=== PATIENT | male | born 1975 | race Caucasian/White ===

== ENCOUNTER 2018-08-04 22:29 | Emergency (ER) | payer BC ==
--- NOTE | 2018-08-04 23:59 | C.PDOC ---
History Of Present Illness 43 yo M BIBEMS/PD after falling while intoxicated and hitting his head. Witnesses deny LOC. Pt states he drank a lot but is able to correctly state the location, time, and his date of . Pt denies ALLEN, neck pain, or confusion. NO other physical complaints. - HPI Time Seen by Provider: 08/04/18 23:03 Chief Complaint (Nursing): Trauma History Per: Patient History/Exam Limitations: intoxication (alcohol) Onset/Duration Of Symptoms: Hrs Location Of Injury: Left: Forearm (0.5 mm laceration to left eyebrow, superficial abrasions to head.) Past Medical History Vital Signs: Last Vital Signs Temp 98.5 F 08/04/18 22:35 Pulse 88 08/04/18 22:35 Resp 16 08/04/18 22:35 BP 117/86 08/04/18 22:35 Pulse Ox 97 08/04/18 22:35 JOSE ARMANDO Report Viewed: Yes - Medical History PMH: No Chronic Diseases Surgical History: No Surg Hx Family History: States: Unknown Family Hx - Social History Hx Alcohol Use: Yes Hx Substance Use: No Review Of Systems Constitutional: Negative for: Fever, Chills, Weakness Eyes: Negative for: Pain, Vision Change ENT: Negative for: Ear Pain Cardiovascular: Negative for: Chest Pain, Palpitations Respiratory: Negative for: Cough, Shortness of Breath Genitourinary: Negative for: Dysuria Musculoskeletal: Negative for: Neck Pain Neurological: Negative for: Weakness, Numbness Physical Exam - Physical Exam Appears: Well, Non-toxic, No Acute Distress Skin: Normal Color, Warm, Dry, Other (superficial abrasion to left forehead and left cheek. 0.5cm laceration to left eyebrow, no active bleeding.) Head: Other (see skin) Nose: Normal Oral Mucosa: Moist Lips: Normal Appearing Teeth: Normal Dentition Neck: Normal, Trachea Midline Chest: Symmetrical, No Tenderness Cardiovascular: Rhythm Regular Respiratory: Normal Breath Sounds Back: Normal Inspection, No CVA Tenderness Extremity: Normal ROM, No Tenderness, No Pedal Edema Extremity: Bilateral: Atraumatic Neurological/Psych: Oriented x3, Normal Speech, Normal Cognition, Normal Cranial Nerves, Normal Motor Gait: Unsteady ED Course And Treatment O2 Sat by Pulse Oximetry: 97 Laceration - Laceration Repair left lateral eyebrow Wound Length (In cm): 0.5 Description Of Wound: Linear Wound Cleansed With: Sterile Saline (irrigated) Wound Examination: Irrigated With Saline, No FB With Wound Exploration Wound Closure: Skin Glue (dermabond with good closure) Wound Complexity: Simple (patient tolerate procedure well) Medical Decision Making Medical Decision Makin yo M presents with alcohol intoxication with abrasions. Visibly intoxicated with slightly unsteady gait but alert and oriented. Pt agreed to wound closure with Dermabond but refusing CT at this time. Agrees to staying in the emergency department until steady gait. 00:50- On reevaluation patient is seen ambulating with a steady gait in the ED. Patient's cousin will come to the ED to pick him up. Patient will be given wound care and concussion instructions. Patient was advised to follow up with PMD. Disposition - Disposition Disposition: HOME/ ROUTINE Disposition Time: 00:48 Condition: IMPROVED Additional Instructions: Follow up with primary medical doctor if you develop headache, confusion, nausea, or other symptoms. Instructions: Alcohol Use - When Is Drinking a Problem?, Laceration Repair With Glue (DC), Effects of Alcohol on Your Health, Concussion (ED) Forms: [employer] (German) - Clinical Impression Clinical Impression: Laceration - injury, Alcohol abuse, Head injury due to trauma
[2018-08-05 01:09] VITALS: BP 148/89; PULSE 99; RESP 18; TEMP 97.9
[2018-08-07 22:12] VITALS: O2SAT 97
== END 2018-08-05 01:09 | disposition home or self-care (01) ==
LOC: C.ER 22:29
DX: S01.112A Laceration without foreign body of left eyelid and periocular area, initial encounter (principal); W18.30XA Fall on same level, unspecified, initial encounter; F10.129 Alcohol abuse with intoxication, unspecified; Y90.9 Presence of alcohol in blood, level not specified